=== PATIENT | female | born 1940 | race Caucasian/White ===

== ENCOUNTER 2017-03-25 11:44 | Emergency (ER) | payer MEDICARE, BC ==
[~2017-03-25] VITALS: Ht 162.6 cm; Wt 81.6 kg
[~2017-03-25 11:44] MED LIST: Acetaminophen PO; BUPR75TA3 PO; CHOL20004 PO; CICL6.1H IH; DILT180C66 PO; ESTR0.3T26 PO; FAMO-132 PO; LEVO75TA PO; PROG100C15 PO; TIOT18CA3 IH
[2017-03-25] MEDS ORDERED: IBUP-1954 PO (12:00)
[2017-03-25] MEDS ORDERED: IBUPROFEN 600 MG TABLET PO ONE (12:30)
--- NOTE | 2017-03-25 12:37 | NUR ---
pt was evaluated by dr maria. pt was d/c to home. d/c instructions given to the pt. gait is stable. no s/s of distress at this time.
[2017-03-25 12:38] VITALS: BP 151/84
[2017-03-25] MEDS ORDERED: IBUPROFEN 600 MG TABLET ONE (12:39)
== END 2017-03-25 12:40 | disposition home or self-care (01) ==
LOC: ER 11:44
DX: S96.911A Strain of unspecified muscle and tendon at ankle and foot level, right foot, initial encounter (principal); M77.9 Enthesopathy, unspecified; I10 Essential (primary) hypertension; K21.9 Gastro-esophageal reflux disease without esophagitis; K58.9 Irritable bowel syndrome, unspecified; Z88.0 Allergy status to penicillin; Z88.2 Allergy status to sulfonamides; X50.9XXA Other and unspecified overexertion or strenuous movements or postures, initial encounter; Y93.89 Activity, other specified; Y92.89 Other specified places as the place of occurrence of the external cause; Y99.8 Other external cause status
CPT/HCPCS: A4663

== ENCOUNTER 2017-09-20 11:57 | Emergency (ER) | payer MEDICARE, BC ==
[~2017-09-20] VITALS: Ht 157.5 cm; Wt 81.6 kg
[~2017-09-20 11:57] MED LIST changes: -CICL6.1H IH; -DILT180C66 PO; -FAMO-132 PO; +IBUP-1954 PO
--- NOTE | 2017-09-20 12:07 | NUR ---
PT IS IN ROOM #2B. DR SHEETS EVALUATED THE PT.
--- NOTE | 2017-09-20 14:11 | NUR ---
PT WAS D/C TO HOME. D/C INSTRUCTIONS GIVEN TO THE PT BY DR SHEETS.
[2017-09-20 14:12] VITALS: BP 139/77
== END 2017-09-20 14:13 | disposition home or self-care (01) ==
LOC: ER 12:02
DX: S49.91XA Unspecified injury of right shoulder and upper arm, initial encounter (principal); I10 Essential (primary) hypertension; K21.9 Gastro-esophageal reflux disease without esophagitis; Z88.0 Allergy status to penicillin; Z88.1 Allergy status to other antibiotic agents; Z88.2 Allergy status to sulfonamides; Z91.040 Latex allergy status; Z79.1 Long term (current) use of non-steroidal anti-inflammatories (NSAID); Z79.899 Other long term (current) drug therapy; W19.XXXA Unspecified fall, initial encounter; Y93.89 Activity, other specified; Y92.89 Other specified places as the place of occurrence of the external cause; Y99.8 Other external cause status
CPT/HCPCS: 29105; 72125; 73030; 99284; A4663

== ENCOUNTER 2018-01-13 03:09 | Emergency (ER) | payer MEDICARE, BC ==
[~2018-01-13] VITALS: Ht 157.5 cm; Wt 81.6 kg
[2018-01-13] MEDS ORDERED: HYDR25TA4 PO (03:39)
[2018-01-13] MEDS ORDERED: BUPR150T5 PO (03:39)
[2018-01-13] MEDS ORDERED: ERGO2000 PO (03:39)
[2018-01-13] MEDS ORDERED: PROG100C15 PO ×2 (03:39→03:44)
[2018-01-13] MEDS ORDERED: LEVO125T PO (03:39)
[2018-01-13] MEDS ORDERED: DIAZ5TAB4 PO (03:39)
[2018-01-13] MEDS ORDERED: PANT40TA4 PO (03:39)
[2018-01-13] MEDS ORDERED: LOSA100T15 PO (03:40)
[2018-01-13] MEDS ORDERED: MORPHINE SULFATE 4 MG/1 ML DISP.SYRIN ONE (03:54)
[2018-01-13] MEDS ORDERED: ONDANSETRON 4 MG/2 ML VIAL ONE (03:54)
[2018-01-13] MEDS ORDERED: MORPHINE SULFATE 2 MG/1 ML DISP.SYRIN IV ONE (04:00)
[2018-01-13] MEDS ORDERED: ONDANSETRON IV *ER 4 MG/2 ML VIAL IV ONE (04:00)
[2018-01-13 04:30] LABS: BASOPHILS # (AUTO) 0.1 K/uL (0.0-8.0); BASOPHILS % (AUTO) 0.9 % (0.0-2.0); EOSINOPHILS # (AUTO) 0.1 K/uL (0.0-0.7); EOSINOPHILS % (AUTO) 2.1 % (0.0-7.0); HEMATOCRIT 41.6 % (31.2-41.9); HEMOGLOBIN 14.3 g/dL (10.9-14.3); LYMPHOCYTES # (AUTO) 1.4 K/uL (20.0-40.0); LYMPHOCYTES % (AUTO) 21.2 % (20.5-51.5); MEAN CORPUSCULAR HEMOGLOBIN 31.6 uug (24.7-32.8); MEAN CORPUSCULAR HGB CONC 34 g/dL (32.3-35.6); MEAN CORPUSCULAR VOLUME 91.9 fL (75.5-95.3); MONOCYTES # (AUTO) 0.4 K/uL (2.0-10.0); MONOCYTES % (AUTO) 6.2 % (0.0-11.0); NEUTROPHILS # (AUTO) 4.6 K/uL (1.8-8.9); NEUTROPHILS % (AUTO) 69.6 % (38.5-71.5); PLATELET COUNT (AUTO) 220 K/uL (179-408); RED BLOOD CELL COUNT(AUTO) 4.53 MIL/uL (3.63-4.92); WHITE BLOOD COUNT (AUTO) 6.6 K/uL (3.8-11.8)
[2018-01-13 04:32] LABS: CARBON DIOXIDE 25 mmol/L (21-32); CHLORIDE 96 mmol/L (98-107); CREATININE 0.9 mg/dL (0.6-1.3); GLUCOSE 134 mg/dL (74-106); POTASSIUM 3.5 mmol/L (3.5-5.1); UREA NITROGEN, BLOOD 15 mg/dL (7-18)
--- NOTE | 2018-01-13 04:36 | NUR ---
[employer] SUPERVISOR AT BEDSIDE.
[2018-01-13 04:37] LABS: ALANINE AMINOTRANSFERASE 21 U/L (14-59); ALKALINE PHOSPHATASE 116 U/L (50-136); ASPARTATE AMINOTRANSFERASE 21 U/L (15-37); BILIRUBIN,DIRECT 0.1 mg/dL (0.0-0.2); BILIRUBIN,TOTAL 0.9 mg/dL (0.2-1.0); LIPASE 144 U/L (73-393); TOTAL PROTEIN, SERUM 7.4 g/dL (6.4-8.2)
[2018-01-13 05:17] LABS: *BILIRUBIN,URIN NEGATIVE (NEGATIVE); *BLOOD, URINE NEGATIVE (NEGATIVE); *CLARITY,URINE CLEAR (CLEAR); *COLOR,URINE LIGHT YELLOW (YELLOW); *KETONES,URINE NEGATIVE (NEGATIVE); *PROTEIN,URINE 1+ (NEGATIVE); *UROBILINOGEN,URINE 0.2 E.U./dl (NORMAL); LEUKOCYTE ESTERASE ,URINE NEGATIVE (NEGATIVE); NITRITE, URINE NEGATIVE (NEGATIVE); UGLUCOSE NEGATIVE (NEGATIVE)
[2018-01-13] MEDS ORDERED: hydrALAZINE HCL 20 MG/1 ML VIAL IV ONE (05:30)
[2018-01-13] MEDS ORDERED: KETOROLAC TROMETHAMINE 15 MG INJ IVP ONE ×2 (05:30→06:15)
[2018-01-13] MEDS ORDERED: hydrALAZINE HCL 20 MG/1 ML VIAL ONE (05:32)
[2018-01-13] MEDS ORDERED: KETOROLAC TROMETHAMINE 15 MG INJ ONE ×2 (05:32→06:11)
[2018-01-13 05:37] LABS: BACTERIA,URINE NONE SEEN /HPF (NONE SEEN); RBC,URINE NONE SEEN /HPF (0-3); SQUAMOUS EPITHELIAL CELL,UR FEW /HPF (NONE SEEN); WBC,URINE 0-3 /HPF (0-3)
--- NOTE | 2018-01-13 07:09 | NUR ---
PT WAS D/C TO HOME AFTER DR CURTIS RE-EVALUATION. D/C INSTRUCTIONS GIVEN TO THE PT . PT VERBALISED FULL UNDERSTANDING OF D/C INSTRUCTIONS, NO S/S OF DISTRES AT THE TIME OF DISCHARGE.
[2018-01-13 07:12] VITALS: BP 136/79
== END 2018-01-13 07:14 | disposition home or self-care (01) ==
LOC: ER 03:13
DX: K80.50 Calculus of bile duct without cholangitis or cholecystitis without obstruction (principal); I16.0 Hypertensive urgency; R33.9 Retention of urine, unspecified; I10 Essential (primary) hypertension; K21.9 Gastro-esophageal reflux disease without esophagitis; J45.909 Unspecified asthma, uncomplicated; I25.10 Atherosclerotic heart disease of native coronary artery without angina pectoris; Z91.040 Latex allergy status; Z88.0 Allergy status to penicillin; Z88.2 Allergy status to sulfonamides; Z88.1 Allergy status to other antibiotic agents; Z88.8 Allergy status to other drugs, medicaments and biological substances
CPT/HCPCS: 36415; 83690; 85025; J0360; J1885; J2270; J2405

== ENCOUNTER 2018-04-10 16:08 | Emergency (ER) | payer MEDICARE, BC ==
[~2018-04-10] VITALS: Ht 165.1 cm; Wt 81.6 kg
[~2018-04-10 16:08] MED LIST changes: +BUPR150T5 PO; -BUPR75TA3 PO; -CHOL20004 PO; +DIAZ5TAB4 PO; +ERGO2000 PO; +HYDR25TA4 PO; -IBUP-1954 PO; +LEVO125T PO; -LEVO75TA PO; +LOSA100T31 PO; +PANT40TA4 PO
--- NOTE | 2018-04-10 16:28 | NUR ---
PT IS IN ROOM #2A. DR PANIAGUA EVALUATED THE PT.
--- NOTE | 2018-04-10 18:13 | NUR ---
d TO HOME. D/C INSTRUCTIONS GIVEN TO THE PT.PT WAS D/C'
--- NOTE | 2018-04-10 18:13 | NUR ---
PT WAS D/C'd TO HOME. D/C INSTRUCTIONS GIVEN TO THE PT.
[2018-04-10 18:16] VITALS: BP 131/79
== END 2018-04-10 18:17 | disposition home or self-care (01) ==
LOC: ER 16:11
DX: R33.9 Retention of urine, unspecified (principal); I10 Essential (primary) hypertension; K21.9 Gastro-esophageal reflux disease without esophagitis; E03.9 Hypothyroidism, unspecified; Z88.0 Allergy status to penicillin; Z88.1 Allergy status to other antibiotic agents; Z88.2 Allergy status to sulfonamides; Z88.8 Allergy status to other drugs, medicaments and biological substances; Z91.040 Latex allergy status; Z79.899 Other long term (current) drug therapy
CPT/HCPCS: A4663

== ENCOUNTER 2018-04-10 22:50 | Emergency (ER) | payer MEDICARE, BC ==
[~2018-04-10] VITALS: Ht 162.6 cm; Wt 81.6 kg
[2018-04-11 01:42] LABS: *BILIRUBIN,URIN NEGATIVE (NEGATIVE); *BLOOD, URINE 1+ (NEGATIVE); *CLARITY,URINE CLEAR (CLEAR); *KETONES,URINE NEGATIVE (NEGATIVE); *UROBILINOGEN,URINE 0.2 E.U./dl (NORMAL); LEUKOCYTE ESTERASE ,URINE NEGATIVE (NEGATIVE); NITRITE, URINE NEGATIVE (NEGATIVE); UGLUCOSE NEGATIVE (NEGATIVE)
[2018-04-11 01:46] LABS: *COLOR,URINE STRAW (YELLOW)
[2018-04-11 01:47] LABS: BACTERIA,URINE NONE SEEN /HPF (NONE SEEN); SQUAMOUS EPITHELIAL CELL,UR FEW /HPF (NONE SEEN); WBC,URINE 0-3 /HPF (0-3)
--- NOTE | 2018-04-11 01:48 | NUR ---
Patient discharged to home in stable conditon. Written and verbal after care instructions given. Patient verbalizes understanding of instructions.
[2018-04-11 01:52] VITALS: BP 152/94
[2018-06-22] MEDS ORDERED: AMLO10TA7 PO (17:34)
== END 2018-04-11 01:53 | disposition home or self-care (01) ==
LOC: ER 22:50
DX: R33.9 Retention of urine, unspecified (principal); I10 Essential (primary) hypertension; K21.9 Gastro-esophageal reflux disease without esophagitis; Z88.0 Allergy status to penicillin; Z88.2 Allergy status to sulfonamides; Z88.1 Allergy status to other antibiotic agents; Z88.8 Allergy status to other drugs, medicaments and biological substances; Z91.040 Latex allergy status; Z79.899 Other long term (current) drug therapy
CPT/HCPCS: 51702; 87086; A4663

== ENCOUNTER 2018-06-21 10:50 | Inpatient (IN) | payer MEDICARE, BC ==
[~2018-06-21] VITALS: Ht 162.6 cm; Wt 78.9 kg
[2018-06-21] MEDS ORDERED: NITROGLYCERIN 0.4 MG/TAB BOTTLE SL ONE ×2 (11:15→11:29)
[2018-06-21 11:32] LABS: BASOPHILS # (AUTO) 0.1 K/uL (0.0-8.0); BASOPHILS % (AUTO) 1.2 % (0.0-2.0); EOSINOPHILS # (AUTO) 0.1 K/uL (0.0-0.7); EOSINOPHILS % (AUTO) 2.7 % (0.0-7.0); HEMATOCRIT 40.3 % (31.2-41.9); HEMOGLOBIN 13.4 g/dL (10.9-14.3); LYMPHOCYTES # (AUTO) 1.1 K/uL (20.0-40.0); MEAN CORPUSCULAR HEMOGLOBIN 30.3 uug (24.7-32.8); MEAN CORPUSCULAR HGB CONC 33 g/dL (32.3-35.6); MEAN CORPUSCULAR VOLUME 91.1 fL (75.5-95.3); MONOCYTES # (AUTO) 0.3 K/uL (2.0-10.0); MONOCYTES % (AUTO) 5.8 % (0.0-11.0); NEUTROPHILS # (AUTO) 3.2 K/uL (1.8-8.9); NEUTROPHILS % (AUTO) 67.3 % (38.5-71.5); PLATELET COUNT (AUTO) 174 K/uL (179-408); RED BLOOD CELL COUNT(AUTO) 4.42 MIL/uL (3.63-4.92); WHITE BLOOD COUNT (AUTO) 4.8 K/uL (3.8-11.8)
--- NOTE | 2018-06-21 11:33 | NUR ---
PT IS IN ROOM #2A. DR DICKERSON EVALUATED THE PT.
[2018-06-21 11:37] LABS: CARBON DIOXIDE 25 mmol/L (21-32); CHLORIDE 103 mmol/L (98-107); CREATININE 1.1 mg/dL (0.6-1.3); GLUCOSE 103 mg/dL (74-106); POTASSIUM 3.5 mmol/L (3.5-5.1); UREA NITROGEN, BLOOD 21 mg/dL (7-18)
[2018-06-21] MEDS ORDERED: NITROGLYCERIN OINT 1 GM PACKET TP ONE ×2 (11:45→12:00)
[2018-06-21 11:49] LABS: ALKALINE PHOSPHATASE 128 U/L (50-136); BILIRUBIN,DIRECT 0.2 mg/dL (0.0-0.2); BILIRUBIN,TOTAL 0.8 mg/dL (0.2-1.0)
[2018-06-21 11:50] LABS: ALANINE AMINOTRANSFERASE 16 U/L (14-59); ASPARTATE AMINOTRANSFERASE 14 U/L (15-37); TOTAL PROTEIN, SERUM 7.3 g/dL (6.4-8.2)
[2018-06-21] MEDS ORDERED: ASPIRIN 325 MG TABLET ONE (13:06)
[2018-06-21] MEDS ORDERED: ASPIRIN 325 MG TABLET PO ONE (13:15)
--- NOTE | 2018-06-21 13:42 | NUR ---
REPORT WAS GIVEN TO SKEIN DYER. PT WAS TRANSFERED TO TELEMETRY ROOM #319.
--- NOTE | 2018-06-21 13:59 | NUR ---
PT WAS TRANSFERED TO TELEMETRY ROOM #319.
[2018-06-21 14:00] VITALS: BP 156/85
[2018-06-21] MEDS ORDERED: ACETAMINOPHEN 325 MG TABLET PO PRN (15:30)
[2018-06-21] MEDS ORDERED: Z GUARD REMEDY PASTE 57 GM TUBE TOP PRN (15:30)
[2018-06-21] MEDS ORDERED: hydrALAZINE HCL 25 MG TABLET PO PRN (15:30)
[2018-06-21] MEDS ORDERED: ONDANSETRON 4 MG/2 ML VIAL IV PRN (15:30)
[2018-06-21 16:00] VITALS: BP 150/75
[2018-06-21] MEDS: AMLODIPINE 10 MG TABLET PO SCH (16:43)
[2018-06-21] MEDS: DIAZEPAM 5 MG TABLET PO SCH ×2 (16:43→22:19)
[2018-06-21] MEDS ORDERED: BUPR75TA8 PO (16:50)
[2018-06-21] MEDS ORDERED: buPROPion SR 150 MG TABLET.SA PO SCH (17:00)
[2018-06-21] MEDS: buPROPion 75 MG TABLET PO SCH (18:10)
--- NOTE | 2018-06-21 19:03 | NUR ---
Pt will bring symbicort inhaler 160-4.5mcg BID daily. KARLENE Alberto agreed to ordered this but we do not carry medication. Pt is calm, cooperative, stable. Continue to monitor pt.
[2018-06-21 20:00] VITALS: BP 128/66
[2018-06-21] MEDS: IPRATROPIUM BROMIDE 0.5 MG/2.5 ML NEBU NEB PRN (21:14)
[2018-06-22] VITALS: BP 123/52
[2018-06-22 04:00] VITALS: BP 146/74
--- NOTE | 2018-06-22 06:00 | NUR ---
PT ALERT, ORIENTED, DENIES ANY PAIN OR DISCOMFORT, VSS,AFEBRILE, NO CHEST PAIN REPORTED OVERNIGHT , SINUS RHYTHM ON MONITOR. ALL NEEDS ATTENDED, CALL LIGHT AT REACHED. HAD REQUESTED BREATHING TREATMENT LAST NIGHT SINCE PT DIDN'T HAVE HER ASTHMA MEDS, NO ACUTE DISTRESS.
[2018-06-22] MEDS ORDERED: PANTOPRAZOLE SODIUM 40 MG TABLET.DR PO SCH (07:00)
[2018-06-22] MEDS ORDERED: LEVOTHYROXINE SODIUM 125 MCG TABLET PO SCH (07:00)
[2018-06-22 07:02] LABS: EOSINOPHILS # (AUTO) 0.2 K/uL (0.0-0.7); EOSINOPHILS % (AUTO) 3.4 % (0.0-7.0); HEMATOCRIT 39.3 % (31.2-41.9); LYMPHOCYTES # (AUTO) 1.2 K/uL (20.0-40.0); LYMPHOCYTES % (AUTO) 25.9 % (20.5-51.5); MEAN CORPUSCULAR HEMOGLOBIN 30.2 uug (24.7-32.8); MEAN CORPUSCULAR HGB CONC 33 g/dL (32.3-35.6); MEAN CORPUSCULAR VOLUME 91.3 fL (75.5-95.3); MONOCYTES # (AUTO) 0.4 K/uL (2.0-10.0); MONOCYTES % (AUTO) 7.8 % (0.0-11.0); NEUTROPHILS # (AUTO) 2.9 K/uL (1.8-8.9); NEUTROPHILS % (AUTO) 61.9 % (38.5-71.5); PLATELET COUNT (AUTO) 186 K/uL (179-408); WHITE BLOOD COUNT (AUTO) 4.7 K/uL (3.8-11.8)
[2018-06-22 07:17] LABS: ALANINE AMINOTRANSFERASE 17 U/L (14-59); ALKALINE PHOSPHATASE 111 U/L (50-136); ASPARTATE AMINOTRANSFERASE 11 U/L (15-37); BILIRUBIN,TOTAL 0.6 mg/dL (0.2-1.0); CARBON DIOXIDE 25 mmol/L (21-32); CHLORIDE 105 mmol/L (98-107); CHOLESTEROL 199 mg/dL (<200); GLUCOSE 109 mg/dL (74-106); HDL CHOLESTEROL 64 mg/dL (40-60); MAGNESIUM 1.8 mg/dL (1.8-2.4); PHOSPHOROUS 3.3 mg/dL (2.5-4.9); POTASSIUM 3.4 mmol/L (3.5-5.1); TOTAL PROTEIN, SERUM 6.6 g/dL (6.4-8.2); TRIGLYCERIDES 106 MG/DL (30-150); UREA NITROGEN, BLOOD 21 mg/dL (7-18)
--- NOTE | 2018-06-22 07:40 | NUR ---
PATIENT RECEIVED RESTING IN BED PATIENT IS AWAKE AND ALERT, PATIENT ABLE TO VERBALIZE NEEDS, PATIENT DENIES ANY DISTRESS AT THIS TIME NO SOB NO CHEST PAIN, PATIENT WITH BED ON LOW POSITION, SIDE RAILS UP X2, CALL LIGHT WITHIN REACH, CONTINUE TO MONITOR ALL NEEDS ATTENDED TO AT THIS TIME
[2018-06-22] MEDS: HYDROCHLOROTHIAZIDE 25 MG TABLET PO SCH ×2 (08:44→09:00)
[2018-06-22] MEDS: buPROPion 75 MG TABLET PO SCH ×3 (08:49→16:57)
[2018-06-22] MEDS ORDERED: CHOLECALCIFEROL 1,000 UNIT TABLET PO SCH (09:00)
[2018-06-22] MEDS ORDERED: LOSARTAN POTASSIUM 50 MG TABLET PO SCH (09:00)
[2018-06-22] MEDS: DIAZEPAM 5 MG TABLET PO SCH ×2 (09:00→13:01)
[2018-06-22] MEDS: AMLODIPINE 10 MG TABLET PO SCH (09:11)
[2018-06-22] MEDS: IPRATROPIUM BROMIDE 0.5 MG/2.5 ML NEBU NEB PRN (09:44)
[2018-06-22] MEDS ORDERED: BUDE10.2 INH (11:23)
[2018-06-22 11:40] VITALS: BP 153/68
[2018-06-22] MEDS ORDERED: ASPIRIN 81 MG TAB.CHEW PO SCH (13:30)
[2018-06-22] MEDS ORDERED: DIAZEPAM 5 MG TABLET PO PRN (13:45)
[2018-06-22] MEDS ORDERED: HOME MED MISCELLANEOUS XX SCH (13:45)
[2018-06-22] MEDS ORDERED: POTASSIUM CHLORIDE 20 MEQ TAB.PRT.SR PO ONE (15:00)
[2018-06-22 15:46] VITALS: BP 148/71
[2018-06-22] MEDS ORDERED: AMLO10TA7 PO (17:34)
--- NOTE | 2018-06-22 18:00 | NUR ---
DISCHARGE INSTRUCTION. PATIENT HAS BEEN CLEARED BY CARDIOLOGY AND AIR CONDITIONING TECHNICIAN FOR DISCHARGE HOME, PATIENT PROVIDED WITH DISCHARGE INSTRUCTIONS TO FOLLOW UP WITH [employer] AND PCP UPON DISCHARGE, STATED SHE WILL FOLLOW UP ON MONDAY, EDUCATED ON DISCHARGE DIAGNOSIS AND MEDICATIONS DISCUSSED WITH PHARMACY NIKKI, PHARMACIST, BELONGINGS RETURNED AND ACCOUNTED INCLUDING OWN MEDICATIONS SYMBICORT. PATIENT QUESTIONS AND CONCERNS ADDRESSED. IV LINE REMOVED AND ID BAND REMOVED. PATIENT WILL BE PICKED UP BY .
--- NOTE | 2018-06-22 18:45 | NUR ---
DISCHARGE PATIENT, NO DISTRESS NOTED.
[2018-06-22 19:00] VITALS: BP 132/80
[2018-06-22] MEDS ORDERED: ATORVASTATIN 20 MG TABLET PO SCH (21:00)
[2018-06-22] MEDS ORDERED: SYMBICORT 160/4.5MCG IH SCH (21:00)
== END 2018-06-22 19:00 | disposition home or self-care (01) | DRG 305 ==
LOC: ER 10:50 → TELE3 13:51
PROVIDERS: ADMIT Nurse Practitioner Acute Care; ATTEND Nurse Practitioner Acute Care
DX: I16.0 Hypertensive urgency (principal); E44.1 Mild protein-calorie malnutrition; R07.9 Chest pain, unspecified; K21.9 Gastro-esophageal reflux disease without esophagitis; K22.0 Achalasia of cardia; E03.9 Hypothyroidism, unspecified; E78.5 Hyperlipidemia, unspecified; F41.9 Anxiety disorder, unspecified; J45.909 Unspecified asthma, uncomplicated; Z87.891 Personal history of nicotine dependence; Z88.0 Allergy status to penicillin; Z88.2 Allergy status to sulfonamides; M06.9 Rheumatoid arthritis, unspecified; Z90.49 Acquired absence of other specified parts of digestive tract; Z68.29 Body mass index [BMI] 29.0-29.9, adult; E88.09 Other disorders of plasma-protein metabolism, not elsewhere classified
CPT/HCPCS: 36415; 70030-TC; 70450; 71045; 83735; 84100; 85025; 85730; 93005; 93307; 94640; 94664; A4663; G0378; J3590

== ENCOUNTER 2019-12-22 11:29 | Emergency (ER) | payer MEDICARE, BC ==
[~2019-12-22] VITALS: Ht 165.1 cm; Wt 79.4 kg
[~2019-12-22 11:29] MED LIST changes: +AMLO10TA7 PO; +BUDE10.2 INH; -BUPR150T5 PO; +BUPR75TA8 PO; -PANT40TA4 PO; +PANT40TA49 PO
[2019-12-22 12:35] LABS: POTASSIUM 3.4 mmol/L (3.5-5.1)
[2019-12-22 12:40] LABS: RED BLOOD CELL COUNT(AUTO) 4.62 MIL/uL (3.63-4.92); WHITE BLOOD COUNT (AUTO) 5.2 K/uL (3.8-11.8)
[2019-12-22 12:41] LABS: BASOPHILS % (AUTO) 0.8 % (0.0-2.0); BILIRUBIN,DIRECT 0.2 mg/dL (0.0-0.2); BILIRUBIN,TOTAL 0.8 mg/dL (0.2-1.0); EOSINOPHILS # (AUTO) 0.1 K/uL (0.0-0.7); EOSINOPHILS % (AUTO) 1.9 % (0.0-7.0); HEMATOCRIT 42.1 % (31.2-41.9); HEMOGLOBIN 14.3 g/dL (10.9-14.3); LYMPHOCYTES % (AUTO) 18.6 % (20.5-51.5); MEAN CORPUSCULAR HGB CONC 34 g/dL (32.3-35.6); MONOCYTES # (AUTO) 0.3 K/uL (2.0-10.0); MONOCYTES % (AUTO) 5.5 % (0.0-11.0); NEUTROPHILS # (AUTO) 3.8 K/uL (1.8-8.9); NEUTROPHILS % (AUTO) 73.2 % (38.5-71.5); PLATELET COUNT (AUTO) 213 K/uL (179-408); TOTAL PROTEIN, SERUM 7.1 g/dL (6.4-8.2)
--- NOTE | 2019-12-22 12:50 | NUR ---
Pt resting with NAD noted. Pt has tried multipe times to provide urine specimen but is unable, notified. Pending U/S.
[2019-12-22] MEDS ORDERED: AMLO5TAB9 PO (13:05)
[2019-12-22] MEDS ORDERED: PSYL0.4C2 PO (13:05)
[2019-12-22] MEDS ORDERED: POLY17PO4 PO (13:05)
[2019-12-22] MEDS ORDERED: DOCU-141 PO (13:05)
[2019-12-22] MEDS ORDERED: KETOROLAC TROMETHAMINE 30 MG INJ IM ONE (13:30)
[2019-12-22] MEDS ORDERED: KETOROLAC TROMETHAMINE 30 MG INJ ONE (13:31)
[2019-12-22 13:32] LABS: *BILIRUBIN,URIN NEGATIVE (NEGATIVE); *BLOOD, URINE NEGATIVE (NEGATIVE); *CLARITY,URINE SLIGHTLY CLOUDY (CLEAR); *COLOR,URINE LIGHT YELLOW (YELLOW); *KETONES,URINE NEGATIVE (NEGATIVE); *UROBILINOGEN,URINE 0.2 E.U./dl (NORMAL); LEUKOCYTE ESTERASE ,URINE 1+ (NEGATIVE); NITRITE, URINE NEGATIVE (NEGATIVE); PH,URINE 6.5 (5.0-8.0); UGLUCOSE NEGATIVE (NEGATIVE)
--- NOTE | 2019-12-22 14:42 | NUR ---
Patient discharged to home in stable condition with . Written and verbal after care instructions given. Patient verbalizes understanding of instructions. Stressed follow up or return to ER for worsening s/s.
[2019-12-22 15:23] LABS: BACTERIA,URINE MANY /HPF (NONE SEEN); RBC,URINE 0-3 /HPF (0-3); SQUAMOUS EPITHELIAL CELL,UR MANY /HPF (NONE SEEN)
== END 2019-12-22 14:44 | disposition home or self-care (01) ==
LOC: ER 11:29
DX: N39.0 Urinary tract infection, site not specified (principal); Z90.49 Acquired absence of other specified parts of digestive tract; E20.9 Hypoparathyroidism, unspecified; M35.9 Systemic involvement of connective tissue, unspecified; Z96.653 Presence of artificial knee joint, bilateral; Z96.649 Presence of unspecified artificial hip joint; K58.9 Irritable bowel syndrome, unspecified; I10 Essential (primary) hypertension; Z88.1 Allergy status to other antibiotic agents; Z88.2 Allergy status to sulfonamides
CPT/HCPCS: 36415; 74176; 76705; 80048; 80076; 81001; 83690; 85025; 87086; 99285; J1885; A4663

== ENCOUNTER 2024-05-02 10:22 | Emergency (ER) | payer MEDICARE, BC ==
[~2024-05-02] VITALS: Ht 162.6 cm; Wt 81.6 kg
[~2024-05-02 10:22] MED LIST changes: +AMLO-212 PO; -AMLO10TA7 PO; -BUDE10.2 INH; -DIAZ5TAB4 PO; +DOCU-141 PO; -HYDR25TA4 PO; +POLY17PO4 PO; +PSYL0.4C2 PO
[2024-05-02] MEDS ORDERED: IOHEXOL 350 100 ML INFUS..BTL ONE (11:12)
[2024-05-02] MEDS ORDERED: IV NORMAL SALINE 250 ML IV ONE (11:12)
[2024-05-02] MEDS ORDERED: SWABABLE VALVE TRANSFER SET EA MC ONE (11:12)
[2024-05-02] MEDS ORDERED: METOPROLOL TARTRATE 50 MG TABLET ONE (11:23)
[2024-05-02] MEDS: METOPROLOL TARTRATE 50 MG TABLET PO ONE (11:31)
[2024-05-02] MEDS ORDERED: ASPIRIN 81 MG TAB.CHEW ONE (12:09)
[2024-05-02] MEDS: ASPIRIN 81 MG TAB.CHEW PO ONE (12:13)
[2024-05-02 12:39] LABS: BASOPHILS # (AUTO) 0.1 K/UL (0.0-0.2); BASOPHILS % (AUTO) 0.8 % (0.0-2.0); EOSINOPHILS # (AUTO) 0.1 K/uL (0.0-0.7); EOSINOPHILS % (AUTO) 1.5 % (0.0-7.0); HEMATOCRIT 39.9 % (31.2-41.9); HEMOGLOBIN 13.2 g/dL (10.9-14.3); LYMPHOCYTES % (AUTO) 17.2 % (20.5-51.5); MEAN CORPUSCULAR HEMOGLOBIN 30.5 uug (24.7-32.8); MEAN CORPUSCULAR HGB CONC 33 g/dL (32.3-35.6); MEAN CORPUSCULAR VOLUME 91.9 fL (75.5-95.3); MONOCYTES # (AUTO) 0.4 K/uL (0.1-1.30); MONOCYTES % (AUTO) 6.9 % (0.0-11.0); NEUTROPHILS # (AUTO) 4.4 K/uL (1.8-8.9); NEUTROPHILS % (AUTO) 73.6 % (38.5-71.5); PLATELET COUNT (AUTO) 222 K/uL (179-408); RED BLOOD CELL COUNT(AUTO) 4.34 MIL/uL (3.63-4.92); RED CELL DISTRIBUTION WIDTH 14.4 % (12.3-17.7)
[2024-05-02 12:44] LABS: ALANINE AMINOTRANSFERASE 11 U/L (14-59); ALBUMIN 3.6 g/dL (3.4-5.0); ALKALINE PHOSPHATASE 157 U/L (50-136); ASPARTATE AMINOTRANSFERASE 18 U/L (15-37); BILIRUBIN,TOTAL 1.1 mg/dL (0.2-1.0); CALCIUM 9.9 mg/dL (8.5-10.1); CARBON DIOXIDE 24 mmol/L (21-32); CHLORIDE 106 mmol/L (98-107); CREATININE 1.2 mg/dL (0.6-1.3); GLUCOSE 133 mg/dL (74-106); POTASSIUM 3.8 mmol/L (3.5-5.1); SODIUM SERUM 143 mmol/L (136-145); TOTAL PROTEIN, SERUM 7.2 g/dL (6.4-8.2); UREA NITROGEN, BLOOD 19 mg/dL (7-18)
[2024-05-02 12:47] LABS: DIFFERENTIAL COMMENT 1
[2024-05-02 12:54] LABS: *BILIRUBIN,URIN NEGATIVE (NEGATIVE); *BLOOD, URINE NEGATIVE (NEGATIVE); *CLARITY,URINE CLEAR (CLEAR); *COLOR,URINE YELLOW (YELLOW); *KETONES,URINE NEGATIVE (NEGATIVE); *PROTEIN,URINE NEGATIVE (NEGATIVE); *UROBILINOGEN,URINE 0.2 E.U./dl (NORMAL); LEUKOCYTE ESTERASE ,URINE NEGATIVE (NEGATIVE); NITRITE, URINE NEGATIVE (NEGATIVE); UGLUCOSE NEGATIVE (NEGATIVE)
[2024-05-02 13:08] LABS: MAGNESIUM 2.3 mg/dL (1.8-2.4)
[2024-05-02 14:30] VITALS: BP 154/66; O2SAT 97
== END 2024-05-02 14:32 | disposition home or self-care (01) ==
LOC: ER 10:22
DX: I63.9 Cerebral infarction, unspecified (principal); I11.9 Hypertensive heart disease without heart failure; K21.9 Gastro-esophageal reflux disease without esophagitis; K58.9 Irritable bowel syndrome, unspecified; R13.10 Dysphagia, unspecified; Z79.890 Hormone replacement therapy; Z79.899 Other long term (current) drug therapy; Z90.49 Acquired absence of other specified parts of digestive tract; Z96.653 Presence of artificial knee joint, bilateral; Z88.0 Allergy status to penicillin; Z88.1 Allergy status to other antibiotic agents; Z88.2 Allergy status to sulfonamides; Z88.7 Allergy status to serum and vaccine
CPT/HCPCS: 99285; 70496; 71045; 80053; 81003; 82607; 82962; 83735; 85025; 85651; 85730; 84484; 36415; 70498; 93005 ×2; 83605; 70450; Q9967; A4606; A4663; C1758